=== PATIENT | female | born 1950 | race Caucasian/White ===

== ENCOUNTER → 2016-09-05 | Outpatient (CLI) | payer OTHER ==
--- NOTE | 2016-09-06 12:56 | MM ---
Reason for exam: screening (asymptomatic). Last mammogram was performed 1 year ago. History: Patient is postmenopausal and has history of endometrial cancer at age 29. Family history of breast cancer in aunt at age 60, breast cancer in mother at age 70, and breast cancer in maternal cousin at age 50. Physical Findings: A clinical breast exam by your physician is recommended on an annual basis and results should be correlated with mammographic findings. MG 3D Screening Mammo W/Cad Bilateral CC and MLO view(s) were taken. Prior study comparison: August 31, 2015, bilateral MG 3d screening mammo w/cad. The breast tissue is heterogeneously dense. This may lower the sensitivity of mammography. There is chronic nodularity in the left breast. No significant changes when compared with prior studies. ASSESSMENT: Benign, BI-RAD 2 RECOMMENDATION: Routine screening mammogram of both breasts in 1 year.
== END | disposition home or self-care (01) ==
LOC: RADMAMWWP 09:09
PROVIDERS: ATTEND Internal Medicine
DX: Z12.31 Encounter for screening mammogram for malignant neoplasm of breast (principal)
CPT/HCPCS: 77063; G0202

== ENCOUNTER 2016-10-08 20:35 | Emergency (ER) | payer OTHER ==
[2016-10-08 20:43] VITALS: BP 176/78; PULSE 77; RESP 18; TEMP 97
[2016-10-08] MEDS ORDERED: CEPHALEXIN 500MG STARTER PACK 4 CAP BTL PO STA (20:54)
--- NOTE | 2016-10-08 20:58 | ED ---
Skin/Abscess/FB HPI - General Chief complaint: Skin/Abscess/Foreign Body Stated complaint: Insect Bite Time Seen by Provider: 10/08/16 20:44 Source: patient, RN notes reviewed, old records reviewed Mode of arrival: ambulatory Limitations: no limitations - History of Present Illness Initial comments: This is a 66-year-old female presenting to emergency department what you complain of an area of redness over her left fifth knuckle.Patient reports that she was cleaning out her kitchen sink Underneath it and thinks that she may have been bit by a spider.Patient reports that she has no significant redness or swelling to the area. You're forced to she's just noticed this discoloration. Just wondered that this could possibly be a bruise.Patient denies any decrease range motion and her finger. She denies any itching.She denies any fevers, chills, chest pain comes from some breath, nausea, bombing, abdominal pain. She denies any history of MRSA. Denies any other skin lesions that she's noticed. - Related Data Previous Rx's Medication Instructions Recorded Cephalexin [Keflex] 500 mg PO Q8HR #21 cap 10/08/16 Allergies Allergy/AdvReac Type Severity Reaction Status Date / Time No Known Allergies Allergy Verified 10/08/16 20:40 Review of Systems ROS Statement: Those systems with pertinent positive or pertinent negative responses have been documented in the HPI. ROS Other: All systems not noted in ROS Statement are negative. Past Medical History Additional Past Medical History / Comment(s): allergies History of Any Multi-Drug Resistant Organisms: None Reported Past Surgical History: Cholecystectomy, Hysterectomy Past Psychological History: No Psychological Hx Reported Smoking Status: Former smoker Past Alcohol Use History: None Reported Past Drug Use History: None Reported General Exam - General Exam Comments Initial Comments: Well appearing 66 female. No acute distress. Limitations: no limitations General appearance: alert, in no apparent distress Head exam: Present: atraumatic, normocephalic, normal inspection Eye exam: Present: normal appearance, PERRL, EOMI. Absent: scleral icterus, conjunctival injection, periorbital swelling ENT exam: Present: normal exam, mucous membranes moist Neck exam: Present: normal inspection. Absent: tenderness, meningismus, lymphadenopathy Respiratory exam: Present: normal lung sounds bilaterally. Absent: respiratory distress, wheezes, rales, rhonchi, stridor Cardiovascular Exam: Present: regular rate, normal rhythm, normal heart sounds. Absent: systolic murmur, diastolic murmur, rubs, gallop, clicks GI/Abdominal exam: Present: soft, normal bowel sounds. Absent: distended, tenderness, guarding, rebound, rigid Extremities exam: Present: normal inspection, full ROM, normal capillary refill , other (1cm area of erthematous discoloratoin over the left 5th MCP joint. area is not swollen, and no pus noted. ). Absent: tenderness, pedal edema, joint swelling, calf tenderness Back exam: Present: normal inspection Neurological exam: Present: alert, oriented X3, CN II-XII intact Psychiatric exam: Present: normal affect, normal mood Skin exam: Present: warm, dry, intact, normal color. Absent: rash Course Vital Signs 10/08/16 20:40 Temperature 97.0 F L Pulse Rate 77 Respiratory 18 Rate Blood Pressure 176/78 O2 Sat by Pulse 97 Oximetry Medical Decision Making - Medical Decision Making This is a 66-year-old female presenting to emergency department what you complain of an area of redness over her left fifth knuckle.Patient reports that she was cleaning out her kitchen sink Underneath it and thinks that she may have been bit by a spider.Patient reports that she has no significant redness or swelling to the area. You're forced to she's just noticed this discoloration. She Just wondered that this could possibly be a bruise.Just have some mild erythema over the left knuckle. She reports full range of motion of her finger. Marker was used to draw a line around the area. Discuss so we can start the patient in textFor concern of infectious causes.Patient will be started on keflex.Discussed that she needs to start taking the antibiotic if the area of redness increases.Patient agrees to treatment plan and will comply.Return parameters were discussed. Disposition Clinical Impression: Erythema of finger Disposition: HOME SELF-CARE Condition: Good Additional Instructions: Patient advised to take the antibiotics if the area of redness continues to worsen, or if EC area of pus starting to form. Recommended follow-up with her primary care physician. Return to the emergency department if any alarming signs or symptoms occur. Also put ice over the area. Prescriptions: Cephalexin [Keflex] 500 mg PO Q8HR #21 cap Referrals: Darrius Marquez MD [Primary Care Provider] - 1-2 days Time of Disposition: 20:56
== END 2016-10-08 21:08 | disposition home or self-care (01) ==
LOC: EC 20:35
DX: L53.9 Erythematous condition, unspecified (principal); Z90.49 Acquired absence of other specified parts of digestive tract; Z87.891 Personal history of nicotine dependence
CPT/HCPCS: 99282

== ENCOUNTER → 2017-11-25 | Outpatient (CLI) | payer OTHER ==
--- NOTE | 2017-11-25 08:25 | US ---
EXAMINATION TYPE: US transvaginal DATE OF EXAM: 11/25/2017 COMPARISON: 07/16/2014 CLINICAL HISTORY: 67-year-old female N83.0 Ovarian cyst. History of endometrial cancer at age 29. Fam tennille history (sisters) of ovarian cancer per patient. TECHNIQUE: Transvaginal sonographic images of the pelvis were acquired. FINDINGS: Uterus: Surgically absent Right Ovary: 3.8 x 2.2 x 2.2 cm . There are difficult to visualize due to overlying bowel gas. A dom inant follicle is present measuring 9 mm. Left Ovary: 2.4 x 1.6 x 1.7 cm. There are 2 dominant follicles or functional cysts, one may be parao varian measuring 1.3 cm. The second measures 1.4 cm. Both of these are smaller from the 2.0 cm cyst seen in 2014. No evidence of adnexal abnormality or cul-de-sac fluid. IMPRESSION: 1. Status post hysterectomy. 2. Two dominant follicles or functional cysts within the left ovary measuring up to 1.4 cm, smaller a s compared to 2.0 cm in 2014. One of these may be a paraovarian cyst.
== END | disposition home or self-care (01) ==
LOC: RADUSWWP 07:28
PROVIDERS: ATTEND Obstetrics & Gynecology
DX: N83.202 Unspecified ovarian cyst, left side (principal); Z90.710 Acquired absence of both cervix and uterus
CPT/HCPCS: 76830

== ENCOUNTER → 2017-12-12 | Outpatient (CLI) | payer OTHER, MEDICARE ==
--- NOTE | 2017-12-12 16:32 | BD ---
EXAMINATION TYPE: Axial Bone Density DATE OF EXAM: 12/12/2017 COMPARISON: NONE CLINICAL HISTORY: Height: 5 FT 9 3/4IN Weight: 209 FRAX RISK QUESTIONS: RISK FACTORS HISTORY OF: Family History of Osteoporosis: YES Active: YES Postmenopausal woman: PART HYST AGE 28 Lost more than 2 inches in height since high school: YES MEDICATIONS: NONE Additional History: EXAM MEASUREMENTS: Bone mineral densitometry was performed using the [employer]™ System. Bone mineral density as measured about the Lumbar spine is: ----- L1-L4(G/cm2): 1.138 T Score Values are as follows: ----- L2: -0.8 ----- L3: 0.0 ----- L4: -0.3 ----- L1-L4: -0.3 Bone mineral density has: DECREASED -7.0 % since study of: 2011 Bone mineral density about the R hip (g/cm2): 0.947 Bone mineral density about the L hip (g/cm2): 0.913 T Score values are as follows: -----R Neck: -0.7 -----L Neck: -0.9 -----R Total: -0.6 -----L Total: -0.6 Bone mineral density has: DECREASED -4.0 % since study of: 2011 IMPRESSION: Normal (Values between +1 and -1 indicate normal bone mass). Consider repeating this study in 5 year s or sooner if there is some new clinical indication. NOTE: T-SCORE=SD OF THE YOUNG ADULT MEAN.
--- NOTE | 2017-12-13 12:16 | MM ---
Reason for exam: screening (asymptomatic). Last mammogram was performed 1 year and 3 months ago. History: Patient is postmenopausal and has history of endometrial cancer at age 29. Family history of breast cancer in aunt at age 60, breast cancer in mother at age 70, and breast cancer in maternal cousin at age 50. Physical Findings: A clinical breast exam by your physician is recommended on an annual basis and results should be correlated with mammographic findings. MG 3D Screening Mammo W/Cad Bilateral CC and MLO view(s) were taken. Prior study comparison: September 05, 2016, bilateral MG 3d screening mammo w/cad. August 31, 2015, bilateral MG 3d screening mammo w/cad. The breast tissue is heterogeneously dense. This may lower the sensitivity of mammography. There is chronic nodularity in the left breast. No significant changes when compared with prior studies. ASSESSMENT: Benign, BI-RAD 2 RECOMMENDATION: Routine screening mammogram of both breasts in 1 year.
== END | disposition home or self-care (01) ==
LOC: RADMAMWWP 07:54
PROVIDERS: ATTEND Obstetrics & Gynecology
DX: Z12.31 Encounter for screening mammogram for malignant neoplasm of breast (principal); Z13.820 Encounter for screening for osteoporosis
CPT/HCPCS: 77063; 77067; 77080

== ENCOUNTER → 2018-06-12 | Outpatient (CLI) | payer OTHER, MEDICARE ==
--- NOTE | 2018-06-12 12:54 | XR ---
Cervical spine HISTORY: Neck pain 5 views of the cervical spine and 6 images Overlying artifact noted on the frontal view. There is multilevel facet arthropathy which is extensiv e. Multilevel spondylosis is present. Lateral extension of endplates causes foraminal encroachment at C6-7 and C5-6 bilaterally. There is anterolisthesis grade 1 C4-5, C5-6. Loss of disc height present at C5-6 and C6-7. Prevertebral soft tissues are normal. Cervical vertebral bodies show preserved heig ht. Bone mineralization mildly reduced. IMPRESSION: Degenerative disc disease and facet arthropathy, foraminal encroachment. Cervical MRI may be of benefit.
--- NOTE | 2018-06-12 12:56 | XR ---
Right shoulder HISTORY: Right shoulder pain 3 views of the right shoulder Arthropathy present at the acromioclavicular joint. Alignment, bone mineralization, joint spaces are maintained. Right lung apex as visualized is normal. IMPRESSION: Acromioclavicular joint arthropathy.
== END ==
LOC: RADXRMAIN 09:28
PROVIDERS: ATTEND Internal Medicine
DX: M48.02 Spinal stenosis, cervical region (principal); M50.30 Other cervical disc degeneration, unspecified cervical region; M46.92 Unspecified inflammatory spondylopathy, cervical region; M19.011 Primary osteoarthritis, right shoulder
CPT/HCPCS: 72050

== ENCOUNTER → 2020-08-05 | Outpatient (CLI) | payer MEDICARE, BC ==
--- NOTE | 2020-08-09 10:44 | MM ---
Reason for exam: screening (asymptomatic). Last mammogram was performed 2 years and 8 months ago. History: Patient is postmenopausal and has history of endometrial cancer at age 29. Family history of breast cancer in aunt at age 60, breast cancer in mother at age 70, and breast cancer in maternal cousin at age 50. Physical Findings: A clinical breast exam by your physician is recommended on an annual basis and results should be correlated with mammographic findings. MG 3D Screening Mammo W/Cad Bilateral CC and MLO view(s) were taken. Prior study comparison: December 12, 2017, bilateral MG 3d screening mammo w/cad. September 05, 2016, bilateral MG 3d screening mammo w/cad. There are scattered fibroglandular densities. There is chronic nodularity in the left breast. Benign appearing bilateral calcifications. No significant changes when compared with prior studies. ASSESSMENT: Benign, BI-RAD 2 RECOMMENDATION: Routine screening mammogram of both breasts in 1 year.
== END | disposition home or self-care (01) ==
LOC: RADMAMWWP 10:03
PROVIDERS: ATTEND Internal Medicine
DX: Z12.31 Encounter for screening mammogram for malignant neoplasm of breast (principal); Z80.3 Family history of malignant neoplasm of breast; Z78.0 Asymptomatic menopausal state; Z85.42 Personal history of malignant neoplasm of other parts of uterus
CPT/HCPCS: 77063; 77067

== ENCOUNTER → 2020-08-05 | Outpatient (CLI) | payer MEDICARE, BC ==
--- NOTE | 2020-08-05 10:58 | US ---
EXAMINATION TYPE: US transvaginal DATE OF EXAM: 08/05/2020 COMPARISON: US 11/25/2017 CLINICAL HISTORY: N83.0 prev L ovarian cyst Z80.41 fa hx ovarian ca. Family history of ovarian cancer , 2, para 2, history of hysterectomy and TECHNIQUE: Transvaginal only per ordering physician. Date of LMP: 1979 EXAM MEASUREMENTS: Right Ovary: not seen Left Ovary: 2.6 x 1.4 x 1.9 cm 1. Uterus: surgically absent 2. Endometrium: surgically absent 3. Right Ovary: not seen 4. Left Ovary: 2 cystic areas measuring 1.3 x 1.0 x 1.4cm and 1.2 x 1.1 x 1.5cm, 0.3cm echogenic foc us 5. Bilateral Adnexa: wnl 6. Posterior cul-de-sac: wnl IMPRESSION: 1. Status post hysterectomy. 2. The right ovary is not visualized within the right adnexa. 3. There are 2 cystic structures within the left ovary. One cystic structure measures 1.4 x 1.0 x 1.3 cm. Another cystic structure measuring 1.2 x 1.5 x 1.1 cm with a echogenic [address] The cystic [address] ructures in the left adnexa are again visualized. On prior exam from 11/25/2017 there are 2 cystic str uctures in these regions but the echogenic focus was not visualized. Differential diagnosis for cyst with echogenic focus includes complex cyst, cystadenoma, cystadenocarcinoma, dermoid tumor. Gynecolog ic evaluation and possible pelvic MRI is recommended.
== END | disposition home or self-care (01) ==
LOC: RADUSWWP 10:01
PROVIDERS: ATTEND Obstetrics & Gynecology
DX: N83.202 Unspecified ovarian cyst, left side (principal); Z80.41 Family history of malignant neoplasm of ovary; Z90.710 Acquired absence of both cervix and uterus
CPT/HCPCS: 76830

== ENCOUNTER 2020-08-17 08:27 | Day surgery (SDC) | payer MEDICARE, BC ==
[2020-08-15 15:25] VITALS: BMI 27.6
[2020-08-17 09:09] VITALS: TEMP 98
[2020-08-17] MEDS ORDERED: LACTATED RINGERS 1,000 ML IV ONE (09:23)
[2020-08-17] MEDS ORDERED: LIDOCAINE 1% (10MG/ML) FOR IV START INTRADERMA ONE (09:24)
[2020-08-17] MEDS ORDERED: PROPOFOL 10 MG/ML 20 ML VIAL IV ONE (10:00)
--- NOTE | 2020-08-17 10:19 | P.PCN ---
Date of Procedure: 08/17/20 Procedure(s) Performed: BRIEF HISTORY: Patient is a 70-year-old pleasant white female scheduled for an elective colonoscopy as a part of screening for colorectal neoplasia. She does have family history of colon cancer diagnosed in her mother at age 70 and sister at age 64. PROCEDURE PERFORMED: Colonoscopy. PREOPERATIVE DIAGNOSIS: Screening for Colon cancer/family history of colon cancer. IV sedation per Anesthesia. PROCEDURE: After informed consent was obtained, the patient, was brought into the endoscopy unit. IV sedation was administered by Anesthesia under continuous monitoring. Digital rectal examination was normal. Initially the Olympus CF-160 flexible video colonoscope was then inserted in the rectum, gradually advanced into the cecum without any difficulty. Careful examination was performed as the scope was gradually being withdrawn. Ileocecal valve and the appendiceal orifice were visualized and appeared normal. Prep was excellent. Mucosa of the cecum, ascending colon, transverse colon, descending colon, sigmoid colon, and rectum appeared normal. Scattered sigmoid diverticulosis. Retroflexion was performed in the rectum and no lesions were seen. The patient tolerated the procedure well. IMPRESSION: Normal-appearing colon from rectum to cecum with no evidence of colorectal neoplasia . Scattered sigmoid diverticulosis. RECOMMENDATIONS: Findings of this examination were discussed with the patient as well as her family. She was advised to have a repeat screening colonoscopy every 5 years because of family history of colon cancer.
[2020-08-17 10:33] VITALS: RESP 16
[2020-08-17 10:41] VITALS: BP 125/77; PULSE 64
== END 2020-08-17 11:13 | disposition home or self-care (01) ==
LOC: ORWHC2ENDO 08:27
PROVIDERS: ATTEND Internal Medicine Gastroenterology
DX: Z12.11 Encounter for screening for malignant neoplasm of colon (principal); Z80.0 Family history of malignant neoplasm of digestive organs; K57.30 Diverticulosis of large intestine without perforation or abscess without bleeding; G47.33 Obstructive sleep apnea (adult) (pediatric); Z87.891 Personal history of nicotine dependence; Z79.1 Long term (current) use of non-steroidal anti-inflammatories (NSAID); Z79.899 Other long term (current) drug therapy
CPT/HCPCS: J2704; G0105; 45378

== ENCOUNTER → 2020-11-23 | Outpatient (CLI) | payer MEDICARE, BC ==
--- NOTE | 2020-11-23 09:49 | US ---
EXAMINATION TYPE: US transvaginal DATE OF EXAM: 11/23/2020 COMPARISON: NONE CLINICAL HISTORY: ovarian Cyst N83.0. TECHNIQUE: Transvaginal (TV). Date of LMP: postmenopausal patient with history of cervical cancer, family history of ovarian cance r in sister EXAM MEASUREMENTS: Uterus: Surgically absent Endometrial Stripe: Surgically absent Right Ovary: obscured by overlying bowel gas Left Ovary: as seen below 1. Uterus: Surgically absent 2. Endometrium: Surgically absent 3. Right Ovary: Obscured by overlying bowel gas. 4. Left Ovary: 2 cystic structures measuring 1.1 x 1.0 x 1.0 cm and 1.4 x 0.8 x 1.0cm Previous measurements of 1.3 x 1.0 x 1.4cm and 1.2 x 1.1 x 1.5cm. 5. Bilateral Adnexa: wnl 6. Posterior cul-de-sac: wnl IMPRESSION: 1. Left ovarian cysts, similar to comparison. Continued monitoring and correlation with laboratory is recommended.
== END | disposition home or self-care (01) ==
LOC: RADUSWWP 08:49
PROVIDERS: ATTEND Obstetrics & Gynecology
DX: N83.202 Unspecified ovarian cyst, left side (principal)
CPT/HCPCS: 76830

== ENCOUNTER 2021-12-06 18:44 | Emergency (ER) | payer MEDICARE, BC ==
[2021-12-06 19:44] VITALS: RESP 16
--- NOTE | 2021-12-06 20:05 | XR ---
EXAMINATION TYPE: XR ankle complete LT DATE OF EXAM: 12/06/2021 COMPARISON: NONE HISTORY: Ankle pain TECHNIQUE: 3 views FINDINGS: Ankle mortise is anatomic. I see no fracture nor dislocation. There is plantar and Achilles calcaneal spurring. There is evidence of a small ankle joint effusion. IMPRESSION: Small joint effusion. No fracture.
[2021-12-06] MEDS ORDERED: CYCLOBENZAPRINE 5 MG TAB PO STA (21:32)
--- NOTE | 2021-12-06 21:43 | ED ---
General Adult HPI - General Chief complaint: Extremity Problem,Nontraumatic Stated complaint: Ankle pain Time Seen by Provider: 12/06/21 21:20 Source: patient, RN notes reviewed, old records reviewed Mode of arrival: ambulatory Limitations: no limitations - History of Present Illness Initial comments: Patient is a 71-year-old female with past medical history remarkable for chronic joint pain who presents in the department complaining of left ankle pain. It was sudden in onset. She states she was at a volleyball game and sitting for a long period of time. Was getting up to walk down the bleachers when she suddenly started having left ankle pain. States it was over the anterior aspect of her ankle. Pain with bearing weight. Pain with movement of the ankle. Denies any obvious injury. Presents for further evaluation at this time. Denies any sensory deficits. Denies any leg swelling or other pain. Denies any other injuries. Did not fall. Did not hit her head. No loss of consciousness. She is not on blood thinners. - Related Data Home Medications Medication Instructions Recorded Confirmed Levocetirizine Dihydrochloride 5 mg PO DAILY PRN 08/15/20 08/15/20 [Xyzal] Meloxicam 7.5 mg PO DAILY 08/15/20 08/15/20 Previous Rx's Medication Instructions Recorded Cyclobenzaprine [Flexeril] 5 mg PO BID 5 Days #10 tablet 12/06/21 Allergies Allergy/AdvReac Type Severity Reaction Status Date / Time No Known Allergies Allergy Verified 12/06/21 19:41 Review of Systems ROS Statement: Those systems with pertinent positive or pertinent negative responses have been documented in the HPI. Review of Systems: CONST: Denies fever EYES: Denies blurry vision ENT: Denies nasal congestion C/V: Denies Chest pain RESP: Denies shortness of breath GI: Denies abdominal pain : Denies dysuria SKIN: Denies rash. MSK: Endorses ankle pain NEURO: Denies headache ROS Other: All systems not noted in ROS Statement are negative. Past Medical History Past Medical History: Cancer, Osteoarthritis (OA), Sleep Apnea/CPAP/BIPAP Additional Past Medical History / Comment(s): allergies History of Any Multi-Drug Resistant Organisms: None Reported Past Surgical History: Cholecystectomy, Hysterectomy Past Anesthesia/Blood Transfusion Reactions: No Reported Reaction Past Psychological History: No Psychological Hx Reported Past Alcohol Use History: None Reported - Past Family History Sister(s) Family Medical History: Cancer Additional Family Medical History / Comment(s): 4 sisters had cancer - Colon, Pancreatic, Ovarian. Mother Family Medical History: Cancer Additional Family Medical History / Comment(s): Breast and colon cancer. General Exam - General Exam Comments Initial Comments: General: Appears in mild distress secondary to left ankle pain. HEAD: Normal with no signs of head trauma. EYES: EOMI ENT: Hearing grossly intact RESPIRATORY: No respiratory distress C/V: Peripheral pulses 2+ and intact throughout. ABD: Nondistended EXT: Reduced range of motion of the left ankle secondary to pain over the anterior aspect of the proximal left foot over the ankle joint. No malleoli tenderness. No tibia or fibula tenderness. No obvious deformity. No obvious injury. Neurovascular intact. Difficulty when bearing weight secondary to pain. SKIN: No rashes or lesions observed on exposed skin. NEURO: Alert and oriented 4. Neurovascular intact. Limitations: no limitations Course Vital Signs 12/06/21 19:41 Temperature 98.2 F Pulse Rate 84 Respiratory 16 Rate Blood Pressure 182/80 O2 Sat by Pulse 98 Oximetry Medical Decision Making - Medical Decision Making Based on the patient's presentation and physical exam, I'm concerned for what appears to be atraumatic left ankle injury. X-ray was obtained prior to me evaluating the patient. It revealed a small joint effusion but no acute fracture or obvious injury otherwise. I did evaluate the patient at this time and updated her. I did offer analgesic medications and she accepted Flexeril. Exam is relatively unremarkable. She may have a soft tissue injury to the left ankle or a possible muscle spasm. She'll be provided with an Sotero bandage as well as crutches with follow-up with her PCP. She was in agreement this plan. I will provide the patient with a prescription for Flexeril. I instructed the patient to follow up with their PCP in the next 1-3 days. I explained that the patient should return to the emergency department if they experience any worsening symptoms. Strict return precautions were discussed with the patient. The patient expressed understanding of these instructions. I answered all questions that the patient had. The patient was discharged home in good condition with their prescriptions and follow up information. Disposition Clinical Impression: Muscle spasm, Ankle pain Disposition: HOME SELF-CARE Condition: Good Prescriptions: Cyclobenzaprine [Flexeril] 5 mg PO BID 5 Days #10 tablet Is patient prescribed a controlled substance at d/c from ED?: No Referrals: Taye Bingham MD [Primary Care Provider] - 1-2 days Time of Disposition: 21:25
[2021-12-06 22:44] VITALS: BP 180/79; PULSE 73; TEMP 97.5
== END 2021-12-06 22:44 | disposition home or self-care (01) ==
LOC: EC 18:44
DX: M25.572 Pain in left ankle and joints of left foot (principal); M62.838 Other muscle spasm
CPT/HCPCS: 99283

== ENCOUNTER → 2021-12-15 | Outpatient (CLI) | payer MEDICARE, BC ==
--- NOTE | 2021-12-15 16:37 | BD ---
EXAMINATION TYPE: Axial Bone Density DATE OF EXAM: 12/15/2021 COMPARISON: 12.12.2017 CLINICAL HISTORY: 71 years year old Female. ICD-10 CODE: [id number] OSTEOPOROSIS Height: 69.8 Weight: 200 FRAX RISK QUESTIONS: Glucocorticoids (More than 3mos): IN THE PAST FOR LONG PERIOD OF TIME (Ex: prednisone, prednisolone, methylprednisolone, dexamethasone, and hydrocortisone). RISK FACTORS HISTORY OF: Family History of Osteoporosis: MOM AND SISTER....NO FX Diet low in dairy products/other sources of calcium: YES Postmenopausal woman: YES, AT 50 Hyperparathyroidism: NO Adrenal Insufficiency: NO MEDICATIONS: Prednisone or other steroids: YES, IN THE PAST FOR QUITE A WHILE 2018 AND 2019...POLYMYALGIA Additional Medications: VIT D AND CA TABLET Additional History: POLYMYALGIA, EXAM MEASUREMENTS: Bone mineral densitometry was performed using the [employer] System. Bone mineral density as measured about the Lumbar spine is: ----- L1-L4(G/cm2): 1.183 T Score Values are as follows: ----- L1: -0.3 ----- L2: -1.1 ----- L3: 0.4 ----- L4: 0.8 ----- L1-L4: 0.0 Bone mineral density has: Increased 4.0% since study of: 12.12.2017 Bone mineral density about the R hip (g/cm2): 0.902 Bone mineral density about the L hip (g/cm2): 0.888 T Score values are as follows: -----R Neck: -0.9 -----L Neck: -1.4 -----R Total: -0.8 -----L Total: -1.0 Bone mineral density has: Decreased -4.4% since study of: 12.12.2017 FRAX%s: The graph provided illustrates a 15.5% chance for a major osteoporotic fx and a 2.6% chance f or the hips probability for fx in 10 years time. IMPRESSION: Normal (Values between +1 and -1 indicate normal bone mass). Consider repeating this study in 5 year s or sooner if there is some new clinical indication. NOTE: T-SCORE=SD OF THE YOUNG ADULT MEAN.
--- NOTE | 2021-12-18 09:42 | MM ---
Reason for Exam: Screening (asymptomatic). Last mammogram was performed 1 year(s) and 5 month(s) ago. Patient History: Menarche at age 14. First Full-Term at age 18. Hysterectomy at age 29. Postmenopausal. Endometrial cancer, age 29. Maternal cousin had breast cancer, age 50. Maternal aunt had breast cancer, age 60. Mother had breast cancer, age 70. Risk Values: Christi 5 year model risk: 3.0%. NCI Lifetime model risk: 8.1%. Prior Study Comparison: 09/05/2016 Bilateral Screening Mammogram, [facility]. 12/12/2017 Bilateral Screening Mammogram, [facility]. 08/05/2020 Bilateral Screening Mammogram, [facility]. Tissue Density: There are scattered fibroglandular densities. Findings: Analyzed By CAD. There is no suspicious group of microcalcifications or new suspicious mass in either breast. Stable chronic nodularity within the left breast. No significant change from prior exams. Overall Assessment: Benign, BI-RAD 2 Management: Screening Mammogram of both breasts in 1 year. A clinical breast exam by your physician is recommended on an annual basis and results should be correlated with mammographic findings. Electronically signed and approved by: Trey Veliz D.O.
== END | disposition home or self-care (01) ==
LOC: RADMAMWWP 11:44
PROVIDERS: ATTEND Internal Medicine
DX: Z12.31 Encounter for screening mammogram for malignant neoplasm of breast (principal)
CPT/HCPCS: 77063; 77067; 77080

== ENCOUNTER → 2022-02-23 | Outpatient (CLI) | payer MEDICARE, BC ==
--- NOTE | 2022-02-23 09:35 | XR ---
EXAMINATION TYPE: XR ankle complete LT DATE OF EXAM: 02/23/2022 COMPARISON: NONE HISTORY: Pain FINDINGS: Three views of the ankle demonstrate the ankle mortise to be intact and symmetric. The joint spaces are preserved. The osseous structures are intact. Small calcaneal spurs. IMPRESSION: 1. No definite acute fracture or dislocation, if symptoms persist follow-up study in 7 to 10 days wou ld be suggested.
--- NOTE | 2022-02-23 09:37 | XR ---
EXAMINATION TYPE: XR foot complete LT DATE OF EXAM: 02/23/2022 COMPARISON: NONE HISTORY: Pain TECHNIQUE: Three views are submitted. FINDINGS: The osseous structures are intact. There is no acute fracture or dislocation. Small calcaneal arias mmertoe deformity suggested severe arthropathy first MTP joint with hallux valgus deformity spurs are noted. Sclerosis involving the distal phalanx (compatible small bone island. IMPRESSION: 1. No acute fracture or dislocation. If symptoms persist, follow-up exam in 7 to 10 days could be ob tained. 2. Severe hypertrophic arthropathy first MTP joint. 3. Tiny calcaneal spurs.
== END | disposition home or self-care (01) ==
LOC: RADXRMAIN 08:52
PROVIDERS: ATTEND Internal Medicine
DX: M77.32 Calcaneal spur, left foot (principal); M12.872 Other specific arthropathies, not elsewhere classified, left ankle and foot

== ENCOUNTER → 2022-11-15 | Outpatient (CLI) | payer MEDICARE, BC ==
--- NOTE | 2022-11-16 13:07 | CA ---
Transthoracic Echo Report Name: Roxana Enciso Age: 72 Gender: F : 1950 Exam Date: 11/15/2022 12:50 Exam Location: [facility] Ht (in): 70 Wt (lb): 198 Ordering Physician: Taye Bingham MD Attending/Referring Phys: Taye Bingham MD Health And Wellness Director Adriana Laguerre [facility] Procedure CPT: Indications: I44.0 ATRIOVENTRICULAR BLOCK, FIRST DEGREE Cardiac Hx: Technical Quality: Fair Contrast 1: Total Dose (mL): Contrast 2: Total Dose (mL): MEASUREMENTS (Male / Female) Normal Values 2D ECHO LV Diastolic Diameter PLAX 4.1 cm 4.2 - 5.9 / 3.9 - 5.3 cm LV Systolic Diameter PLAX 2.6 cm IVS Diastolic Thickness 1.1 cm 0.6 - 1.0 / 0.6 - 0.9 cm LVPW Diastolic Thickness 1.1 cm 0.6 - 1.0 / 0.6 - 0.9 cm LV Relative Wall Thickness 0.5 LVOT Diameter 2.1 cm Ascending Aorta Diameter 3.2 cm M-MODE Aortic Root Diameter MM 3.0 cm LA Systolic Diameter MM 3.7 cm LA Ao Ratio MM 1.3 AV Cusp Separation MM 2.0 cm DOPPLER AV Peak Velocity 193.1 cm/s AV Peak Gradient 14.9 mmHg AV Mean Velocity 128.8 cm/s AV Mean Gradient 7.3 mmHg AV Velocity Time Integral 34.8 cm AI Peak Velocity 451.2 cm/s AI Peak Gradient 81.4 mmHg AI Pressure Half Time 447.0 ms LVOT Peak Velocity 160.1 cm/s LVOT Peak Gradient 10.2 mmHg LVOT Velocity Time Integral 21.8 cm LVOT Stroke Volume 75.9 cm??? LVOT Stroke Volume Index 36.5 ml/m??? LVOT Cardiac Index 2680.1 cm???/min???m??? AV Area Cont Eq vti 2.2 cm??? AV Area Cont Eq pk 2.9 cm??? Mitral E Point Velocity 66.1 cm/s Mitral A Point Velocity 108.6 cm/s Mitral E to A Ratio 0.6 MV Deceleration Time 219.7 ms LV E' Lateral Velocity 7.5 cm/s Mitral E to LV E' Lateral Ratio 8.8 LV E' Septal Velocity 7.9 cm/s Mitral E to LV E' Septal Ratio 8.4 TR Peak Velocity 289.1 cm/s TR Peak Gradient 33.4 mmHg Right Atrial Pressure 3.0 mmHg Pulmonary Artery Systolic Pressu 36.4 mmHg Right Ventricular Systolic Press 36.4 mmHg FINDINGS Left Ventricle Mild concentric left ventricular hypertrophy. Left ventricular cavity size normal. Normal left ventricular systolic function with no obvious regional wall motion abnormalities. Left ventricular ejection fraction is estimated at 60- 65%. Right Ventricle Mild right ventricular dilatation. Mild pulmonary hypertension. RVSP estimated at 36 mmHg Right Atrium Mild right atrial dilatation. Left Atrium Mild left atrial dilatation. Mitral Valve Structurally normal mitral valve. Mitral valve thickened. No mitral regurgitation. Aortic Valve Trileaflet aortic valve Aortic valve sclerosis. Mild aortic regurgitation. Tricuspid Valve Structurally normal tricuspid valve. [id number] tricuspid regurgitation. Pulmonic Valve Structurally normal pulmonic valve. Mild pulmonic regurgitation. Pericardium No pericardial effusion. Aorta Normal size aortic root and proximal ascending aorta. CONCLUSIONS Normal LV size and systolic function. LVEF estimated at 60% No obvious regional wall motion abnormality Mild concentric LVH Grade 1 diastolic dysfunction Mild biatrial dilatation Mild RV dilatation with RVSP 36 mmHg Previewed by: Dr Dionicio Cruz (Electronically Signed) Final Date: 16 November 2022 13:06
== END | disposition home or self-care (01) ==
LOC: RADECHMAIN 12:35
PROVIDERS: ATTEND Internal Medicine
DX: I08.2 Rheumatic disorders of both aortic and tricuspid valves (principal); I44.0 Atrioventricular block, first degree
CPT/HCPCS: 93306

== ENCOUNTER → 2023-05-23 | Outpatient (CLI) | payer MEDICARE, BC ==
--- NOTE | 2023-05-26 18:02 | MM ---
Reason for Exam: Screening (asymptomatic). Last mammogram was performed 1 year(s) and 5 month(s) ago. Patient History: Menarche at age 14. First Full-Term at age 18. Hysterectomy at age 29. Postmenopausal. Endometrial cancer, age 29. Maternal cousin had breast cancer, age 50. Maternal aunt had breast cancer, age 60. Mother had breast cancer, age 70. Risk Values: Christi 5 year model risk: 3.0%. NCI Lifetime model risk: 7.3%. Prior Study Comparison: 12/12/2017 Bilateral Screening Mammogram, [facility]. 08/05/2020 Bilateral Screening Mammogram, [facility]. 12/15/2021 Bilateral MG 3D screening mammo w/cad, [facility]. Tissue Density: There are scattered areas of fibroglandular density. Findings: Analyzed By CAD. Chronic nodularity on the left. There is no suspicious group of microcalcifications or new suspicious mass in either breast. Overall Assessment: Benign, BI-RAD 2 Management: Screening Mammogram of both breasts in 1 year. See note below in regards to patient's increased 5 year Christi score. Patient should continue monthly self-breast exams. A clinical breast exam by your physician is recommended on an annual basis. This exam should not preclude additional follow-up of suspicious palpable abnormalities. Note on Christi scores and lifetime risk: 1. A Christi score greater than 3% is considered moderate risk. If this is the case, consider specialist referral to assess eligibility for a risk reducing agent. 2. If overall lifetime risk for the development of breast cancer is 20% or higher, the patient may qualify for future screening with alternating mammogram and breast MRI. Electronically signed and approved by: Cristobal Diaz M.D. Radiologist
== END | disposition home or self-care (01) ==
LOC: RADMAMWWP 08:32
PROVIDERS: ATTEND Internal Medicine
DX: Z12.31 Encounter for screening mammogram for malignant neoplasm of breast (principal); Z78.0 Asymptomatic menopausal state; Z80.3 Family history of malignant neoplasm of breast
CPT/HCPCS: 77063; 77067

== ENCOUNTER → 2024-04-12 | Outpatient (CLI) | payer MEDICARE, BC ==
--- NOTE | 2024-04-13 07:21 | MR ---
EXAMINATION TYPE: MR knee LT wo con DATE OF EXAM: 04/12/2024 COMPARISON: NONE HISTORY: Left knee pain and swelling since January. TECHNIQUE: Multiplanar, multisequence images of the knee is performed without IV contrast. FINDINGS: MEDIAL MENISCUS: Blunted appearance posterior horn with abnormal signal extending to central body and articular surface. LATERAL MENISCUS: Marked blunting with abnormal signal anterior horn and body of the lateral meniscus consistent with full-thickness tear. CRUCIATE LIGAMENTS: The posterior cruciate ligament is intact and unremarkable. Abnormal anterior cr uciate ligament with increased signal and fanning of the fibers. Majority of fibers are torn. COLLATERAL LIGAMENTS: The medial collateral ligament and lateral collateral ligament complex are inta ct. Increased signal and thickening of the proximal portion lateral collateral ligament complex. EXTENSOR MECHANISM: Visualized quadriceps and patellar tendons are intact. EFFUSION: Moderate to large size septated suprapatellar joint effusion. POPLITEAL CYST: No popliteal/olivo cyst. TRICOMPARTMENT SPACES: Moderate to severe tricompartment joint space loss and spurring. CARTILAGE: Chondromalacia patella with cartilaginous loss along the posterior patellar pole. Full-thi ckness loss is seen inferiorly. Tricompartment nuclear cartilaginous loss is seen. BONE MARROW SIGNAL: Areas of heterogeneous increased T2 signal involving the inferior aspect of the p osterior patellar pole. There is largest area of heterogeneous increased T2 signal involving the dist al medial femoral condyle and metaphysis. Articular surface medial tibial femoral compartment shows a reas of diminished T1 and increased T2 signal. OTHER: No additional significant abnormality is appreciated. IMPRESSION: 1. Fairly advanced tricompartment degenerative changes are detailed above. Significant abnormal bone marrow edema distal medial femoral condyle and metaphysis noted. 2. Full-thickness tear posterior horn of medial meniscus extending into the central body. 3. Full-thickness tear anterior horn of lateral meniscus. 4. Essentially complete ACL tear. 5. Chronic proximal LCL sprain. 6. Moderate to large-sized suprapatellar joint effusion. [facility], , 04/13/2024 7:19 AM
== END | disposition home or self-care (01) ==
LOC: RADMRIMAIN 09:06
PROVIDERS: ATTEND Internal Medicine
DX: M23.222 Derangement of posterior horn of medial meniscus due to old tear or injury, left knee (principal); M23.242 Derangement of anterior horn of lateral meniscus due to old tear or injury, left knee; M17.12 Unilateral primary osteoarthritis, left knee; S83.512A Sprain of anterior cruciate ligament of left knee, initial encounter; M25.462 Effusion, left knee

== ENCOUNTER 2024-07-28 13:41 | Inpatient (IN) | payer MEDICARE, BC ==
--- NOTE | 2024-07-28 13:48 | ED ---
Arrhythmia/Palpitations HPI - General Chief Complaint: Arrhythmia/Palpitations Stated Complaint: aFiB Time Seen by Provider: 07/28/24 13:42 Source: patient, EMS, RN notes reviewed, old records reviewed Mode of arrival: EMS Limitations: no limitations - History of Present Illness Initial Comments: This is a 74-year-old female to [facility] elevated heart rate sent in by primary care for new onset atrial fibrillation. Patient complains of shortness of breath and chest pain no history of the same no blood thinners MD Complaint: rapid heart beat, irregular heart beat, atrial fibrillation -: unknown Associated Symptoms: chest pain, shortness of breath - Related Data Home Medications Medication Instructions Recorded Confirmed Levocetirizine Dihydrochloride 5 mg PO DAILY PRN 08/15/20 08/15/20 [Xyzal] Meloxicam 7.5 mg PO DAILY 08/15/20 08/15/20 Previous Rx's Medication Instructions Recorded Cyclobenzaprine [Flexeril] 5 mg PO BID 5 Days #10 tablet 12/06/21 Allergies Allergy/AdvReac Type Severity Reaction Status Date / Time duloxetine [From Cymbalta] AdvReac Nausea & Verified 07/28/24 13:48 Vomiting Review of Systems ROS Statement: Those systems with pertinent positive or pertinent negative responses have been documented in the HPI. ROS Other: All systems not noted in ROS Statement are negative. Past Medical History Past Medical History: Cancer, Osteoarthritis (OA), Sleep Apnea/CPAP/BIPAP Additional Past Medical History / Comment(s): allergies History of Any Multi-Drug Resistant Organisms: None Reported Past Surgical History: Cholecystectomy, Hysterectomy Past Anesthesia/Blood Transfusion Reactions: No Reported Reaction Past Psychological History: No Psychological Hx Reported Past Alcohol Use History: None Reported - Past Family History Sister(s) Family Medical History: Cancer Additional Family Medical History / Comment(s): 4 sisters had cancer - Colon, Pancreatic, Ovarian. Mother Family Medical History: Cancer Additional Family Medical History / Comment(s): Breast and colon cancer. General Exam Limitations: no limitations General appearance: alert, in no apparent distress, anxious Head exam: Present: atraumatic, normocephalic, normal inspection Eye exam: Present: normal appearance, PERRL, EOMI. Absent: scleral icterus, conjunctival injection, periorbital swelling ENT exam: Present: normal exam, mucous membranes moist Neck exam: Present: normal inspection. Absent: tenderness, meningismus, lymphadenopathy Respiratory exam: Present: normal lung sounds bilaterally. Absent: respiratory distress, wheezes, rales, rhonchi, stridor Cardiovascular Exam: Present: tachycardia, irregular rhythm, normal heart sounds. Absent: systolic murmur, diastolic murmur, rubs, gallop, clicks GI/Abdominal exam: Present: soft, normal bowel sounds. Absent: distended, tenderness, guarding, rebound, rigid Extremities exam: Present: normal inspection, full ROM, normal capillary refill. Absent: tenderness, pedal edema, joint swelling, calf tenderness Back exam: Present: normal inspection Neurological exam: Present: alert, oriented X3, CN II-XII intact Psychiatric exam: Present: normal affect, normal mood Skin exam: Present: warm, dry, intact, normal color. Absent: rash Course Vital Signs 07/28/24 07/28/24 07/28/24 13:44 14:47 15:09 Temperature 97.8 F Pulse Rate 142 H 146 H 144 H Respiratory 18 18 18 Rate Blood Pressure 170/102 156/94 153/99 O2 Sat by Pulse 97 98 97 Oximetry - Reevaluation(s) Reevaluation #1: 07/28/24 15:47 Medical records reviewed Reevaluation #2: 07/28/24 15:47 Patient symptoms mildly improved Reevaluation #3: 07/28/24 15:47 Patient informed of results questions answered Reevaluation #4: Was pt. sent in by a medical professional or institution (, PA, [employer], urgent care, hospital, or prison...) When possible be specific @ -no Did you speak to anyone other than the patient for history (EMS, parent, family, police, friend...)? What history was obtained from this source @ -no Did you review nursing and triage notes (agree or disagree)? Why? @ -agree Are old charts reviewed (outside hosp., previous admission, EMS record, old EKG, old radiological studies, urgent care reports/EKG's, prison records)? Report findings @ -yes Differential Diagnosis (chest pain, altered mental status, abdominal pain women, abdominal pain men, vaginal bleeding, weakness, fever, dyspnea, syncope, headache, dizziness, GI bleed, back pain, seizure, CVA, palpatations, mental health, musculoskeletal)? @ -prior EKG interpreted by me (3pts min.). @ -yes X-rays interpreted by me (1pt min.). @ -yes negative for acute disease CT interpreted by me (1pt min.). @ -no U/S interpreted by me (1pt. min.). @ -no What testing was considered but not performed or refused? (CT, X-rays, U/S, labs)? Why? @ -none What meds were considered but not given or refused? Why? @ -none Did you discuss the management of the patient with other professionals (professionals i.e. Dr., PA, [employer], lab, RT, psych nurse, social worker school, vp marketing, teacher, staff command and control officer, vocational case manager)? Give summary @ -no Was smoking cessation discussed for >3mins.? @ -no Was critical care preformed (if so, how long)? @ -no Were there social determinants of health that impacted care today? How? (Homelessness, low income, unemployed, alcoholism, drug addiction, transportation, low edu. Level, literacy, decrease access to med. care, fdc, rehab)? @ -none Was there de-escalation of care discussed even if they declined (Discuss DNR or withdrawal of care, Hospice)? DNR status @ -no What co-morbidities impacted this encounter? (DM, HTN, Smoking, COPD, CAD, Cancer, CVA, ARF, Chemo, Hep., AIDS, mental health diagnosis, sleep apnea, morbid obesity)? @ -none Was patient admitted / discharged? Hospital course, mention meds given and route, prescriptions, significant lab abnormalities, going to OR and other pertinent info. @ - Undiagnosed new problem with uncertain prognosis? @ -no Drug Therapy requiring intensive monitoring for toxicity (Heparin, Nitro, Insulin, Cardizem)? @ -no Were any procedures done? @ -no Diagnosis/symptom? @ - Acute, or Chronic, or Acute on Chronic? @ -Acute Uncomplicated (without systemic symptoms) or Complicated (systemic symptoms)? @ -Complicated Side effects of treatment? @ -no Exacerbation, Progression, or Severe Exacerbation? @ -exacerbation Poses a threat to life or bodily function? How? (Chest pain, [place], [place], pneumonia, PE, COPD, DKA, ARF, appy, cholecystitis, CVA, Diverticulitis, Homicidal, Suicidal, threat to staff... and all critical care pts) @ -yes Reevaluation #5: Differential Palpitations Ventricular arrhythmias, atrial arrhythmias, myocardial infarction, anemia, thyrotoxicosis, electrolyte imbalance, hypokalemia, pulmonary embolism, pulmonary disease, drugs, alcohol, anxiety, stress.... This is not meant to be an all-inclusive list. EKG Findings - EKG Comments: EKG Findings:: EKG is a flutter 146 QRS 79 QTc 381 - EKG Results: EKG: interpreted by MANASAD EKG shows: tachycardia, atrial fibrillation Medical Decision Making - Medical Decision Making 74 female new onset atrial fibrillation A-fib with RVR will admit for rate control, patient's A-fib does appear to be a flutter at a rate of 150 - Lab Data Result diagrams: 07/28/24 14:01 07/28/24 14:01 Lab Results 07/28/24 07/28/24 07/28/24 Range/Units 14:01 14:01 14:01 WBC 7.01 (4.50-10.00) 10*3/uL RBC 4.16 (4.10-5.20) 10*6/uL Hgb 13.8 (12.0-15.0) g/dL Hct 40.6 (37.2-46.3) % MCV 97.6 H (80.0-97.0) fL MCH 33.2 H (27.0-32.0) pg MCHC 34.0 (32.0-37.0) g/dL Plt Count 353 (140-440) 10*3/uL MPV 8.9 L (9.5-12.2) fL Immature Gran % (Auto) 0.3 % Neutrophils % 68.4 % Lymphocytes % 24.4 % Monocytes % 6.4 % Eosinophils % 0.1 % Basophils % 0.4 % Immature Gran # 0.02 (0.00-0.04) 10*3/uL Neutrophils # 4.79 (1.80-7.70) 10*3/uL Lymphocytes # 1.71 (0.90-5.00) 10*3/uL Monocytes # 0.45 (0.20-1.00) 10*3/uL Eosinophils # 0.01 L (0.04-0.35) 10*3/uL Basophils # 0.03 (0.00-0.10) 10*3/uL PT 10.9 (10.0-12.5) sec INR 1.0 (<1.2) APTT 22.2 (22.0-30.0) sec D-Dimer 1.66 H (<0.60) mg/L FEU Sodium 141 (137-145) mmol/L Potassium 4.2 (3.5-5.1) mmol/L Chloride 106 (98-107) mmol/L Carbon Dioxide 24 (22-30) mmol/L Anion Gap 11 mmol/L BUN 15 (7-17) mg/dL Creatinine 0.70 (0.52-1.04) mg/dL Est GFR (CKD-EPI)AfAm >90 (>60 ml/min/1.73 sqM) Est GFR (CKD-EPI)NonAf 86 (>60 ml/min/1.73 sqM) Glucose 107 H (74-99) mg/dL Plasma Lactic Acid Toby (0.7-2.0) mmol/L Calcium 9.7 (8.4-10.2) mg/dL Phosphorus 4.2 (2.5-4.5) mg/dL Magnesium 2.2 (1.6-2.3) mg/dL Total Bilirubin 0.6 (0.2-1.3) mg/dL AST 32 (14-36) U/L ALT 55 H (4-34) U/L Alkaline Phosphatase 89 (38-126) U/L Troponin I (0.000-0.034) ng/mL NT-Pro-B Natriuret Pep 1010 pg/mL Total Protein 7.3 (6.3-8.2) g/dL Albumin 4.7 (3.5-5.0) g/dL TSH 1.110 (0.465-4.680) mIU/L 07/28/24 07/28/24 Range/Units 14:01 14:01 WBC (4.50-10.00) 10*3/uL RBC (4.10-5.20) 10*6/uL Hgb (12.0-15.0) g/dL Hct (37.2-46.3) % MCV (80.0-97.0) fL MCH (27.0-32.0) pg MCHC (32.0-37.0) g/dL Plt Count (140-440) 10*3/uL MPV (9.5-12.2) fL Immature Gran % (Auto) % Neutrophils % % Lymphocytes % % Monocytes % % Eosinophils % % Basophils % % Immature Gran # (0.00-0.04) 10*3/uL Neutrophils # (1.80-7.70) 10*3/uL Lymphocytes # (0.90-5.00) 10*3/uL Monocytes # (0.20-1.00) 10*3/uL Eosinophils # (0.04-0.35) 10*3/uL Basophils # (0.00-0.10) 10*3/uL PT (10.0-12.5) sec INR (<1.2) APTT (22.0-30.0) sec D-Dimer (<0.60) mg/L FEU Sodium (137-145) mmol/L Potassium (3.5-5.1) mmol/L Chloride (98-107) mmol/L Carbon Dioxide (22-30) mmol/L Anion Gap mmol/L BUN (7-17) mg/dL Creatinine (0.52-1.04) mg/dL Est GFR (CKD-EPI)AfAm (>60 ml/min/1.73 sqM) Est GFR (CKD-EPI)NonAf (>60 ml/min/1.73 sqM) Glucose (74-99) mg/dL Plasma Lactic Acid Toby 1.2 (0.7-2.0) mmol/L Calcium (8.4-10.2) mg/dL Phosphorus (2.5-4.5) mg/dL Magnesium (1.6-2.3) mg/dL Total Bilirubin (0.2-1.3) mg/dL AST (14-36) U/L ALT (4-34) U/L Alkaline Phosphatase (38-126) U/L Troponin I <0.012 (0.000-0.034) ng/mL NT-Pro-B Natriuret Pep pg/mL Total Protein (6.3-8.2) g/dL Albumin (3.5-5.0) g/dL TSH (0.465-4.680) mIU/L - Radiology Data Radiology results: report reviewed (CTA chest negative for acute disease), image reviewed Disposition Clinical Impression: Atrial fibrillation, Atrial flutter, Sinus tachycardia, Palpitations, Tachycardia, New onset atrial fibrillation Disposition: ADMITTED IP TO THIS HOSP Condition: Serious Is patient prescribed a controlled substance at d/c from ED?: No Referrals: Milla Diaz MD [Primary Care Provider] - 1-2 days Time of Disposition: 15:35
[2024-07-28] MEDS: SODIUM CHLORIDE 0.9% 1,000 ML IV ONE (13:59)
[2024-07-28 14:24] LABS: ALT 55 U/L (4-34); AST 32 U/L (14-36); African American GFR (CKD) >90 (>60 ml/min/1.73 sqM); Albumin 4.7 g/dL (3.5-5.0); Alkaline Phosphatase 89 U/L (38-126); Anion Gap 11 mmol/L; Blood Urea Nitrogen 15 mg/dL (7-17); Calcium 9.7 mg/dL (8.4-10.2); Carbon Dioxide 24 mmol/L (22-30); Chloride 106 mmol/L (98-107); Glucose 107 mg/dL (74-99); Magnesium 2.2 mg/dL (1.6-2.3); Non-African American GFR(CKD) 86 (>60 ml/min/1.73 sqM); Phosphorus 4.2 mg/dL (2.5-4.5); Potassium 4.2 mmol/L (3.5-5.1); Sodium 141 mmol/L (137-145); Total Bilirubin 0.6 mg/dL (0.2-1.3); Total Protein 7.3 g/dL (6.3-8.2)
[2024-07-28 14:25] LABS: Partial Thromboplastin Time 22.2 sec (22.0-30.0); Prothrombin Time 10.9 sec (10.0-12.5)
[2024-07-28 14:32] LABS: NT-Pro-B-Type Natriuretic Pept 1010 pg/mL
[2024-07-28 14:42] LABS: Basophils # (A) 0.03 10*3/uL (0.00-0.10); Basophils % (A) 0.4 %; Eosinophils # (A) 0.01 10*3/uL (0.04-0.35); Eosinophils % (A) 0.1 %; HCT 40.6 % (37.2-46.3); HGB 13.8 g/dL (12.0-15.0); Lymphocytes # (A) 1.71 10*3/uL (0.90-5.00); Lymphocytes % (A) 24.4 %; MCH 33.2 pg (27.0-32.0); MCV 97.6 fL (80.0-97.0); Mean Platelet Volume 8.9 fL (9.5-12.2); Monocytes # (A) 0.45 10*3/uL (0.20-1.00); Monocytes % (A) 6.4 %; Neutrophils # (A) 4.79 10*3/uL (1.80-7.70); Neutrophils % (A) 68.4 %; Platelet Count 353 10*3/uL (140-440); RBC 4.16 10*6/uL (4.10-5.20); RDW 13.1 % (11.5-14.5); WBC 7.01 10*3/uL (4.50-10.00)
[2024-07-28] MEDS: DILTIAZEM 5 MG/ML 5 ML VIAL IVP STA ×2 (15:12→18:01)
[2024-07-28] MEDS: HEPARIN SODIUM 1,000 UN/ML (10ML VL) IV ONE (15:19)
[2024-07-28] MEDS: HEPARIN SOD,PORK IN 0.45% NACL 25,000 UNIT in 0.45% NACL 1 250ML.BAG IV SCH (15:20)
--- NOTE | 2024-07-28 15:21 | CT ---
EXAMINATION TYPE: CT angio chest DATE OF EXAM: 07/28/2024 COMPARISON: None CLINICAL INDICATION: Female, 74 years old with history of PE; PHH, Knee surgery x 6 weeks ago. Positi ve dimer TECHNIQUE: CTA scan of the thorax is performed with IV Contrast, patient injected with 70 mL of Isovue 370, pulm onary embolism protocol. MIP images are created and reviewed. CT DLP: 347.[address] CTDI: mGy Automated exposure control for dose reduction was used. FINDINGS: LUNGS: The lungs are grossly clear, there is no concerning parenchymal mass or nodule identified. T here is no pleural effusion or pneumothorax seen. The tracheobronchial tree is patent. MEDIASTINUM: There is satisfactory enhancement of the pulmonary artery and its branches, there is no CT evidence for pulmonary embolism. There are no greater than 1 cm hilar or mediastinal lymph nodes. No pericardial effusion is seen. There is mild cardiomegaly. OTHER: No additional significant abnormality is seen. IMPRESSION: 1. NO EVIDENCE OF PULMONARY EMPHYSEMA. 2. MILD CARDIOMEGALY. 3. NO ACUTE CARDIOPULMONARY DISEASE. [facility], , 07/28/2024 3:18 PM
[2024-07-28] MEDS ORDERED: NALOXONE 0.4 MG/ML 1 ML VIAL IV PRN (15:37)
[2024-07-28] MEDS ORDERED: ONDANSETRON 4 MG/2 ML VIAL IVP PRN (15:37)
[2024-07-28] MEDS ORDERED: MORPHINE SULFATE 4 MG/ML SYRINGE IV PRN (15:37)
[2024-07-28] MEDS: METOPROLOL TARTRATE 5 MG/5 ML VIAL IVP STA ×2 (15:51→18:55)
[2024-07-28] MEDS: SODIUM CHLORIDE 0.9% 1,000 ML IV SCH (15:53)
[2024-07-28] MEDS ORDERED: DILTIAZEM 5 MG/ML 5 ML VIAL IVP PRN (17:45)
[2024-07-28] MEDS: DILTIAZEM 125 MG in DEXTROSE 5% IN WATER 100 ML IV SCH (18:05)
[2024-07-28] MEDS ORDERED: LORazepam 0.5 MG TAB PO PRN (21:08)
[2024-07-28] MEDS: HEPARIN SODIUM 1,000 UN/ML (10ML VL) IV PRN (21:48)
[2024-07-28] MEDS: LORazepam 1 MG/0.5 ML VIAL IV PRN (21:50)
--- NOTE | 2024-07-28 22:46 | P.HPIM ---
History of Present Illness H&P Date: 07/28/24 History of present illness; 74-year-old female with PMH of hypertension presents to the ED for evaluation of severely elevated heart rate, she was sent by her primary care physician after new onset of atrial fibrillation. She presented with complaints of shortness of breath and chest pain and has no history of similar complaint. She is not on blood thinners. 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 Most recent echocardiogram was completed on 11/15/2022, and at that time showed EF 60-65% with mild right ventricular dilation, mild pulmonary hypertension, RVSP estimated to be 36, with mild right atrial and left atrial dilation. She denies any chest pain, or shortness of breath. However does sta te that she has been getting minimal amounts of sleep recently, after she underwent a left total knee arthroplasty in early June of this year. Labratory review: -WBC 7.01, hemoglobin 13.8, hematocrit 40.6, platelet 353; sodium 141, potassium 4.2, BUN 15, creatinine 0.70, lactic acid 1.2, calcium 9.7, phosphorus 4.2, magnesium 2.2, total bilirubin 0.6, AST 32, ALT 55, alkaline phosphatase 89; troponin x 2 <0.012, proBNP 1010, TSH 1.110; D-dimer 1.66 Imaging: - CT angio chest done in the ED showed no evidence of pulmonary embolism, mild cardiomegaly and no evidence of acute cardiopulmonary disease -Initial EKG done in the ED independently read and interpreted showed heart rate of 146, with evidence of atrial flutter/tachycardia with RVR - Subsequent EKG done in the ED independently read and interpreted showed heart rate 144, with continued evidence of atrial flutter/tachycardia with RVR Vitals: - On arrival: Blood pressure 170/102, heart rate 142, respiratory rate 18, SpO2 97% on room air - Most recently: Blood pressure 134/84, heart rate 144, respiratory rate 18, SpO2 96% on room air Patient admitted to internal medicine service REVIEW OF SYSTEMS: Pertinent positives and negatives noted in HPI. The rest of the 14-point review of systems is negative. Physical Exam: General: nontoxic, no distress, appears at stated age Derm: warm, dry, intact Head: atraumatic, normocephalic, symmetric Eyes: EOMI, anicteric sclera Mouth: no lip lesion, mucus membranes moist Cardiovascular: Irregularly irregular Lungs: CTA bilateral, no rales, no accessory muscle use Abdominal: soft, non-tender to palpataion, no appreciable organomegaly Extremities: no gross muscle atrophy, no edema, no contractures Neuro: Alert, Oriented, CNII-XII grossly intact, gait normal Psych: well appearing, appropriate affect Assessment and plan 74-year-old female with PMH of hypertension presents to the ED for evaluation of severely elevated heart rate, she was sent by her primary care physician after new onset of atrial fibrillation. #New onset atrial fibrillation #Sustained tachycardia, with possible tachycardia induced cardiomyopathy - [id number] score of 3, strong benefit with anticoagulation - initiated Eliquis 5 mg twice daily - Was on a heparin drip, discontinued now and started on Eliquis 5 mg twice daily - Received total of 10 mg Lopressor IVP and total of 35 mg IVP Cardizem - Initiated on metoprolol 50 mg twice daily - Will receive 250 mcg digoxin now and then again at 6 AM - Continue with Cardizem drip at 10 cc/h - Echocardiogram ordered, currently pending - Cardiac monitoring - Cardiology consulted Chronic conditions: #Hypertension - Resume home medications GI prophylaxis: None DVT prophylaxis: Currently on heparin drip The patient is admitted with an anticipated more than than 2 midnight stay for evaluation of new onset sustained atrial fibrillation/flutter and tachycardia. CODE STATUS: Full code Discussed with: Patient Anticipated discharge place: Home Dictation was produced using [employer] dictation software. please excuse any grammatical, word or spelling errors. Valentin Singh MD PGY-1 IM Past Medical History Past Medical History: Cancer, Osteoarthritis (OA), Sleep Apnea/CPAP/BIPAP Additional Past Medical History / Comment(s): allergies History of Any Multi-Drug Resistant Organisms: None Reported Past Surgical History: Cholecystectomy, Hysterectomy Past Anesthesia/Blood Transfusion Reactions: No Reported Reaction Past Psychological History: No Psychological Hx Reported Past Alcohol Use History: None Reported - Past Family History Sister(s) Family Medical History: Cancer Additional Family Medical History / Comment(s): 4 sisters had cancer - Colon, Pancreatic, Ovarian. Mother Family Medical History: Cancer Additional Family Medical History / Comment(s): Breast and colon cancer. Medications and Allergies Home Medications Medication Instructions Recorded Confirmed Type Levocetirizine Dihydrochloride 5 mg PO HS PRN 08/15/20 07/28/24 History [Xyzal] Acetaminophen Tab [Tylenol Tab] 1,000 mg PO Q6H PRN 07/28/24 07/28/24 History amLODIPine [Norvasc] 5 mg PO HS 07/28/24 07/28/24 History Allergies Allergy/AdvReac Type Severity Reaction Status Date / Time duloxetine [From Cymbalta] AdvReac Nausea & Verified 07/28/24 13:48 Vomiting Physical Exam Vitals: Vital Signs Temp Pulse Resp BP Pulse Ox 07/28/24 19:45 144 H 07/28/24 18:55 75 07/28/24 18:00 97.8 F 83 18 134/84 96 07/28/24 17:26 142 H 18 138/89 96 07/28/24 16:03 126 H 07/28/24 15:59 96 18 131/87 96 07/28/24 15:49 129 H 18 153/95 95 07/28/24 15:09 144 H 18 153/99 97 07/28/24 14:47 146 H 18 156/94 98 07/28/24 13:44 97.8 F 142 H 18 170/102 97 Intake and Output 07/28/24 07/28/24 07/28/24 06:59 14:59 22:59 Intake Total 8.333 Balance 8.333 Intake: Intake, IV Titration 8.333 Amount Diltiazem 125 mg In 8.333 Dextrose 5% in Water 100 ml @ 5 MG/HR 5 mls/hr IV .Q24H [facility] Rx#:[id number] Other: Weight 89.811 kg Results CBC & Chem 7: 07/28/24 14:01 07/28/24 14:01 Labs: Abnormal Lab Results - Last 24 Hours (Table) 07/28/24 07/28/24 07/28/24 Range/Units 14:01 14:01 14:01 MCV 97.6 H (80.0-97.0) fL MCH 33.2 H (27.0-32.0) pg MPV 8.9 L (9.5-12.2) fL Eosinophils # 0.01 L (0.04-0.35) 10*3/uL D-Dimer 1.66 H (<0.60) mg/L FEU Glucose 107 H (74-99) mg/dL ALT 55 H (4-34) U/L
[2024-07-28] MEDS: ACETAMINOPHEN TAB 325 MG TAB PO PRN (23:47)
[2024-07-28] MEDS: DIGOXIN 250 MCG/ML 2 ML AMP IVP ONE (23:47)
[2024-07-28] MEDS: METOPROLOL SUCCINATE (ER) 50 MG TAB.ER.24H PO SCH (23:48)
[2024-07-28] MEDS: APIXABAN 5 MG TAB PO SCH (23:48)
[2024-07-29] MEDS: DIGOXIN 250 MCG/ML 2 ML AMP IVP SCH (04:34)
[2024-07-29 07:20] LABS: Basophils # (A) 0.03 10*3/uL (0.00-0.10); Basophils % (A) 0.4 %; HCT 39.1 % (37.2-46.3); Lymphocytes # (A) 2.01 10*3/uL (0.90-5.00); Lymphocytes % (A) 26.6 %; MCH 32.3 pg (27.0-32.0); MCHC 33.2 g/dL (32.0-37.0); MCV 97.3 fL (80.0-97.0); Mean Platelet Volume 8.7 fL (9.5-12.2); Monocytes # (A) 0.61 10*3/uL (0.20-1.00); Monocytes % (A) 8.1 %; Neutrophils # (A) 4.89 10*3/uL (1.80-7.70); Neutrophils % (A) 64.8 %; Platelet Count 349 10*3/uL (140-440); RBC 4.02 10*6/uL (4.10-5.20); RDW 13.2 % (11.5-14.5); WBC 7.55 10*3/uL (4.50-10.00)
[2024-07-29 07:39] LABS: ALT 53 U/L (4-34); AST 33 U/L (14-36); African American GFR (CKD) >90 (>60 ml/min/1.73 sqM); Albumin 4.3 g/dL (3.5-5.0); Alkaline Phosphatase 88 U/L (38-126); Anion Gap 8 mmol/L; Blood Urea Nitrogen 9 mg/dL (7-17); Calcium 9.8 mg/dL (8.4-10.2); Carbon Dioxide 25 mmol/L (22-30); Chloride 107 mmol/L (98-107); Glucose 101 mg/dL (74-99); Non-African American GFR(CKD) >90 (>60 ml/min/1.73 sqM); Phosphorus 3.9 mg/dL (2.5-4.5); Potassium 4.4 mmol/L (3.5-5.1); Sodium 140 mmol/L (137-145); Total Bilirubin 0.7 mg/dL (0.2-1.3); Total Protein 6.8 g/dL (6.3-8.2)
[2024-07-29] MEDS: DAPAGLIFLOZIN PROPANEDIOL 10 MG TABLET PO SCH (10:38)
[2024-07-29] MEDS: METOPROLOL SUCCINATE (ER) 25 MG TAB.ER.24H PO STA (10:38)
[2024-07-29] MEDS: LOSARTAN 25 MG TAB PO SCH (10:39)
[2024-07-29 11:45] VITALS: BP 144/71; PULSE 77; RESP 20; TEMP 98.1
--- NOTE | 2024-07-29 12:07 | P.CRDCN ---
History of Present Illness Consult date: 07/29/24 Reason for Consult (text): New A-fib with RVR History of present illness: This is a 74-year-old female patient of Dr. Cruz with past medical history of PACs, first-degree AV block, palpitations, family history of premature coronary artery disease. We have been asked to evaluate the patient for new onset of A- fib with RVR. Patient gives history that she had recent knee surgery and her blood pressure was okay at that time but her heart rate was on the high side. She states since 09 July she has been having ongoing problems. She was seen by a new PCP and was sent here because her heart rate was elevated. She states that at home for the last couple weeks her blood pressure has been elevated. She also feels very tired and also has an anxious feeling. She has had ongoing pain from her knee. She also has palpitations. She states due to pain and inability to get comfortable she is not sleeping very much. She denies any tobacco use, no marijuana use, no alcohol use. She drinks 1 cup of coffee in the morning. Patient presented with a blood pressure of 170/102 and heart rate in the 140s. Patient was found to be in atrial fibrillation. She is currently rate controlled and blood pressure is 119/73. Patient is status post digoxin IV push, Cardizem bolus and drip, metoprolol succinate oral and metoprolol tartrate IV, heparin drip. Dr. Cruz discussed with the patient plan for outpatient cardioversion and eventually for ablation. -EKG: Atrial flutter 146 bpm. -Chest x-ray: -CTA chest negative for pulmonary embolism. Mild cardiomegaly. No acute process. -Laboratory studies: WBC 7.5, hemoglobin 13. D-dimer 1.66. Electrolytes and renal function normal. Troponin negative x 3. proBNP 1010. TSH 1.11. -Home cardiac medications: Amlodipine 5 mg at bedtime. -Stress echocardiogram performed in the office on 03/12/2023 was normal treadmill echocardiogram, nonischemic EKG and echocardiographic response to exercise, nor mal clinical and hemodynamical response to exercise. -Event monitor performed 12/11 - 12/18/2022 revealed less than 1% PVC PAC burden. PVC are monomorphic. 1 3 beat NSVT. No atrial fibrillation. No pauses. Review Of Systems: At the time of my exam: CONSTITUTIONAL: Denies fever or chills. HEENT: Denies blurred vision, vision changes, or eye pain. Denies hemoptysis CARDIOVASCULAR: Denies chest pain. Denies orthopnea. Denies PND. Denies palpitations RESPIRATORY: Denies shortness of breath. GASTROINTESTINAL: Denies abdominal pain. Denies nausea or vomiting. HEMATOLOGIC: Denies bleeding disorders. GENITOURINARY: Denies any blood in urine. SKIN: Denies puritis. Denies rash. Physical examination: Gen: This is a 74-year-old female in no acute distress. VS: reviewed HEENT: Head is atraumatic, normocephalic. Pupils equal, round. Sclerae is anicteric. NECK: Supple. No JVD. LUNGS: Clear to auscultation. No wheezes or rhonchi. No intercostal retractions. HEART: Irregular rate and rhythm. No murmur. ABDOMEN: Soft No tenderness. EXTREMITIES: No pedal edema. No calf tenderness. NEUROLOGICAL: Patient is awake, alert and oriented x3. Assessment: New onset typical atrial flutter with RVR, currently rate controlled History of PACs History of first-degree block Palpitations Family history of premature coronary artery disease Plan: Discontinue amlodipine Patient has been started on Eliquis 5 mg twice daily should be continued Start patient on Farxiga 10 mg daily Discontinue digoxin Start patient on losartan 12.5 mg daily Increase metoprolol succinate to 75 mg twice daily Obtain 2-D echocardiogram and Doppler study to assess cardiac structure and function-Dr. Cruz has reviewed preliminarily Obtain A1c and lipid panel Patient is cleared for discharge from cardiology and may follow-up with Dr. Cruz next week. Thank you kindly for this consultation. Nurse practitioner note has been reviewed, I agree with documented findings and plan of care. Patient was seen and examined. Past Medical History Past Medical History: Cancer, Osteoarthritis (OA), Sleep Apnea/CPAP/BIPAP Additional Past Medical History / Comment(s): allergies History of Any Multi-Drug Resistant Organisms: None Reported Past Surgical History: Cholecystectomy, Hysterectomy Past Anesthesia/Blood Transfusion Reactions: No Reported Reaction Past Psychological History: No Psychological Hx Reported Past Alcohol Use History: None Reported - Past Family History Sister(s) Family Medical History: Cancer Additional Family Medical History / Comment(s): 4 sisters had cancer - Colon, Pancreatic, Ovarian. Mother Family Medical History: Cancer Additional Family Medical History / Comment(s): Breast and colon cancer. Medications and Allergies Home Medications Medication Instructions Recorded Confirmed Type Levocetirizine Dihydrochloride 5 mg PO HS PRN 08/15/20 07/28/24 History [Xyzal] Acetaminophen Tab [Tylenol Tab] 1,000 mg PO Q6H PRN 07/28/24 07/28/24 History amLODIPine [Norvasc] 5 mg PO HS 07/28/24 07/28/24 History Allergies Allergy/AdvReac Type Severity Reaction Status Date / Time duloxetine [From Cymbalta] AdvReac Nausea & Verified 07/28/24 13:48 Vomiting Physical Exam Vitals: Vital Signs Temp Pulse Pulse Resp BP BP Pulse Ox 07/29/24 07:58 98.3 F 75 18 119/73 97 07/29/24 04:00 77 16 137/81 98 07/29/24 02:00 141 H 18 07/28/24 22:18 97.9 F 16 143/78 07/28/24 21:52 114 H 18 161/101 94 L 07/28/24 19:45 144 H 07/28/24 18:55 75 07/28/24 18:00 97.8 F 83 18 134/84 96 07/28/24 17:26 142 H 18 138/89 96 07/28/24 16:03 126 H 07/28/24 15:59 96 18 131/87 96 07/28/24 15:49 129 H 18 153/95 95 07/28/24 15:09 144 H 18 153/99 97 07/28/24 14:47 146 H 18 156/94 98 07/28/24 13:44 97.8 F 142 H 18 170/102 97 Intake and Output 07/28/24 07/29/24 07/29/24 22:59 06:59 14:59 Intake Total 73.166 116.667 Balance 73.166 116.667 Intake: Intake, IV Titration 73.166 116.667 Amount Diltiazem 125 mg In 8.333 116.667 Dextrose 5% in Water 100 ml @ 5 MG/HR 5 mls/hr IV .Q24H [facility] Rx#:[id number] Heparin Sod,Pork in 0.45% 64.833 NaCl 25,000 unit In 0.45 % NaCl 1 250ml.bag @ 11. 134 UNITS/KG/HR 10 mls/hr IV .Q24H [facility] Rx#: [id number] Other: Weight 89.811 kg 89.6 kg Results 07/29/24 06:54 07/29/24 06:54 Cardiac Enzymes 07/28/24 07/28/24 07/28/24 Range/Units 14:01 14:01 17:02 AST 32 (14-36) U/L Troponin I <0.012 <0.012 (0.000-0.034) ng/mL 07/28/24 07/29/24 Range/Units 21:13 06:54 AST 33 (14-36) U/L Troponin I <0.012 (0.000-0.034) ng/mL Coagulation 07/28/24 07/28/24 Range/Units 14:01 21:13 PT 10.9 (10.0-12.5) sec APTT 22.2 35.7 H (22.0-30.0) sec CBC 07/28/24 07/29/24 Range/Units 14:01 06:54 WBC 7.01 7.55 (4.50-10.00) 10*3/uL RBC 4.16 4.02 L (4.10-5.20) 10*6/uL Hgb 13.8 13.0 (12.0-15.0) g/dL Hct 40.6 39.1 (37.2-46.3) % Plt Count 353 349 (140-440) 10*3/uL Comprehensive Metabolic Panel 07/28/24 07/29/24 Range/Units 14:01 06:54 Sodium 141 140 (137-145) mmol/L Potassium 4.2 4.4 (3.5-5.1) mmol/L Chloride 106 107 (98-107) mmol/L Carbon Dioxide 24 25 (22-30) mmol/L BUN 15 9 (7-17) mg/dL Creatinine 0.70 0.58 (0.52-1.04) mg/dL Glucose 107 H 101 H (74-99) mg/dL Calcium 9.7 9.8 (8.4-10.2) mg/dL AST 32 33 (14-36) U/L ALT 55 H 53 H (4-34) U/L Alkaline Phosphatase 89 88 (38-126) U/L Total Protein 7.3 6.8 (6.3-8.2) g/dL Albumin 4.7 4.3 (3.5-5.0) g/dL Current Medications Generic Name Dose Route Start Last Admin Trade Name Freq PRN Reason Stop Dose Admin Acetaminophen 650 mg 07/28/24 22:42 07/29/24 08:18 Acetaminophen Tab 325 Mg Tab PO 650 mg Q6HR PRN Administration Fever and/ or Pain Apixaban 5 mg 07/28/24 23:45 07/29/24 08:18 Apixaban 5 Mg Tab PO 5 mg BID KATHY Administration Protocol Digoxin 250 mcg 07/29/24 06:00 07/29/24 08:19 Digoxin 250 Mcg/Ml 2 Ml Amp IVP 250 mcg DAILY KATHY Administration Diltiazem HCl 20 mg 07/28/24 17:45 Diltiazem 5 Mg/Ml 5 Ml Vial IVP 07/29/24 23:00 ONCE PRN See Comments Sodium Chloride 1,000 mls @ 75 mls/hr 07/28/24 15:45 07/29/24 04:33 Saline 0.9% IV Not Given .[id number] KATHY Diltiazem HCl 125 mg/ Dextrose 125 mls @ 5 mls/hr 07/28/24 17:45 07/29/24 08:21 /Water IV 10 mg/hr .Q24H [facility] 10 mls/hr Administration Protocol 5 MG/HR Lorazepam 0.5 mg 07/28/24 21:36 07/28/24 21:50 Lorazepam 1 Mg/0.5 Ml Vial IV 0.5 mg Q6HR PRN Administration Anxiety Metoprolol Succinate 50 mg 07/28/24 23:45 07/29/24 08:18 Metoprolol Succinate (Er) 50 Mg Tab.Er.24h PO 50 mg BID KATHY Administration Morphine Sulfate 4 mg 07/28/24 15:37 Morphine Sulfate 4 Mg/Ml Syringe IV Q4HR PRN Severe Pain (Scale 7 to 10) Naloxone HCl 0.2 mg 07/28/24 15:37 Naloxone 0.4 Mg/Ml 1 Ml Vial IV Q2M PRN Opioid Reversal Ondansetron HCl 4 mg 07/28/24 15:37 Ondansetron 4 Mg/2 Ml Vial IVP Q8HR PRN Nausea And Vomiting Intake and Output 07/28/24 07/29/24 07/29/24 22:59 06:59 14:59 Intake Total 73.166 116.667 Balance 73.166 116.667 Intake: Intake, IV Titration 73.166 116.667 Amount Diltiazem 125 mg In 8.333 116.667 Dextrose 5% in Water 100 ml @ 5 MG/HR 5 mls/hr IV .Q24H [facility] Rx#:[id number] Heparin Sod,Pork in 0.45% 64.833 NaCl 25,000 unit In 0.45 % NaCl 1 250ml.bag @ 11. 134 UNITS/KG/HR 10 mls/hr IV .Q24H [facility] Rx#: [id number] Other: Weight 89.811 kg 89.6 kg 07/29/24 06:54 07/29/24 06:54
--- NOTE | 2024-07-29 12:32 | CA ---
Transthoracic Echo Report Name: Roxana Enciso Age: 74 Gender: F : 1950 Exam Date: 07/29/2024 09:08 Exam Location: [facility] Ht (in): 70 Wt (lb): 198 Ordering Physician: Héctor Singh MD Attending/Referring Phys: Leasing Representative Yeyo Marina RDCS Procedure CPT: Indications: new onset a fib Cardiac Hx: Technical Quality: Good Contrast 1: Total Dose (mL): Contrast 2: Total Dose (mL): MEASUREMENTS (Male / Female) Normal Values 2D ECHO LV Diastolic Diameter PLAX 4.3 cm 4.2 - 5.9 / 3.9 - 5.3 cm LV Systolic Diameter PLAX 3.1 cm IVS Diastolic Thickness 1.2 cm 0.6 - 1.0 / 0.6 - 0.9 cm LVPW Diastolic Thickness 1.1 cm 0.6 - 1.0 / 0.6 - 0.9 cm LV Relative Wall Thickness 0.5 RV Internal Dim ED PLAX 3.5 cm LVOT Diameter 2.1 cm Aortic Root Diameter 3.0 cm LA Systolic Diameter LX 3.8 cm 3.0 - 4.0 / 2.7 - 3.8 cm LV Diastolic Volume MOD BP 99.8 cm??? 67 - 155 / 56 - 104 cm??? LV Systolic Volume MOD BP 49.2 cm??? 22 - 58 / 19 - 49 cm??? LV Ejection Fraction MOD BP 50.7 % >= 55 % LV Cardiac Index MOD BP 1881.6 cm???/min???m??? LV Diastolic Volume MOD 4C 98.9 cm??? LV Systolic Volume MOD 4C 44.3 cm??? LV Ejection Fraction MOD 4C 55.2 % LV Cardiac Index MOD 4C 2029.4 cm???/min???m??? LV Diastolic Length 4C 7.7 cm LV Systolic Length 4C 6.5 cm LV Diastolic Volume MOD 2C 97.2 cm??? LV Systolic Volume MOD 2C 52.1 cm??? LV Ejection Fraction MOD 2C 46.4 % LV Cardiac Index MOD 2C 1676.4 cm???/min???m??? LV Diastolic Length 2C 8.0 cm LV Systolic Length 2C 6.8 cm LA Volume 70.8 cm??? 18 - 58 / 22 - 52 cm??? LA Volume Index 33.3 cm???/m??? 16 - 28 cm???/m??? DOPPLER AI Peak Velocity 404.8 cm/s AI Peak Gradient 65.6 mmHg AI Pressure Half Time 457.2 ms MV Peak Velocity 153.3 cm/s MV Peak Gradient 9.4 mmHg MV Mean Velocity 80.7 cm/s MV Mean Gradient 3.4 mmHg MV Velocity Time Integral 27.9 cm MV Area PHT 4.8 cm??? Mitral E Point Velocity 121.6 cm/s Mitral A Point Velocity 68.1 cm/s Mitral E to A Ratio 1.8 MV Deceleration Time 157.0 ms TR Peak Velocity 240.7 cm/s TR Peak Gradient 23.2 mmHg Right Atrial Pressure 5.0 mmHg Pulmonary Artery Systolic Pressu 28.2 mmHg Right Ventricular Systolic Press 28.2 mmHg FINDINGS Left Ventricle Left ventricular ejection fraction is estimated at 55-60 %. Mild concentric left ventricular hypertrophy. No obvious regional wall motion abnormalities. Right Ventricle Mild right ventricular dilatation. Right ventricular systolic pressure within normal limits. Right Atrium Mild right atrial dilatation. Left Atrium Mildly increased left atrial volume. Mitral Valve Mild mitral calcification. No mitral stenosis. Trace mitral regurgitation. Aortic Valve Trileaflet aortic valve. No aortic stenosis. Moderate aortic regurgitation. Tricuspid Valve Structurally normal tricuspid valve. No tricuspid stenosis. Moderate tricuspid regurgitation. Pulmonic Valve Structurally normal pulmonic valve. No pulmonic stenosis. Trace pulmonic regurgitation. Pericardium No pericardial effusion. Aorta Normal size aortic root and proximal ascending aorta. CONCLUSIONS Reason for echo: Atrial fibrillation LVH with preserved systolic function Mildly enlarged right ventricle Biatrial enlargement Moderate tricuspid regurgitation and moderate aortic regurgitation Previewed by: Dr. Ovidio Humphrey MD (Electronically Signed) Final Date: 29 Jul 2024 12:31
--- NOTE | 2024-07-29 13:06 | P.DS ---
Providers Date of admission: 07/28/24 15:41 Expected date of discharge: 07/29/24 Attending physician: Devante Peters Consults: 07/28/24 15:37 Consult Physician Routine Consulting Provider: Lexi Gutierres Consult Reason/Comments: [email or web address] Do you want consulting provider notified?: Yes Primary care physician: Milla Diaz MD Hospital Course: Discharge Diagnosis: New onset atrial fibrillation with RVR Hypertension Moderate tricuspid regurgitation Moderate aortic regurgitation Hospital Course: 74-year-old female with history of first-degree AV block, PACs presenting with new onset A-fib with RVR. Laboratory workup unremarkable. D-dimer was 1.66. CTA chest did not show any evidence of PE. EKG showed A-fib with RVR. Echocardiogram showed preserved LV function with LVH, moderate tricuspid regurgitation, moderate aortic regurgitation. Metoprolol started, amlodipine discontinued, by cardiology. Patient currently asymptomatic, rate controlled. Being discharged home with close follow-up with PCP and cardiology. Patient seen and examined at bedside. Vital signs reviewed and stable. General: Nontoxic, no distress, appears at stated age Derm: Warm, dry Head: Atraumatic, normocephalic, symmetric Eyes: EOMI, no lid lag, anicteric sclera Mouth: No lip lesion, mucus membranes moist Cardiovascular: S1S2 irregular, no murmur Lungs: CTA bilateral, no rhonchi, no rales, no accessory muscle use Abdominal: Soft, nontender to palpation, no guarding, no appreciable organomegaly Ext: No gross muscle atrophy, no edema, no contractures Neuro: CN II-XI grossly intact, no focal neuro deficits Psych: Alert, oriented, appropriate affect A total of 33 minutes of time were spent preparing this complex discharge summary. Patient was discharged on 07/29/2024 at 1302. Patient Condition at Discharge: Stable Plan - Discharge Summary Discharge Rx Participant: No New Discharge Prescriptions: New Dapagliflozin Propanediol [Farxiga] 10 mg PO DAILY #90 tab Metoprolol Succinate (ER) [Toprol XL] 75 mg PO BID #90 tab Losartan [Cozaar] 12.5 mg PO DAILY #90 tab Apixaban [Eliquis] 5 mg PO BID #90 tab Continue Levocetirizine Dihydrochloride [Xyzal] 5 mg PO HS PRN PRN Reason: Allergic Reaction Acetaminophen Tab [Tylenol] 1,000 mg PO Q6H PRN PRN Reason: Pain Discontinued amLODIPine [Norvasc] 5 mg PO HS Discharge Medication List Levocetirizine Dihydrochloride [Xyzal] 5 mg PO HS PRN 08/15/20 [History] Acetaminophen Tab [Tylenol] 1,000 mg PO Q6H PRN 07/28/24 [History] Apixaban [Eliquis] 5 mg PO BID #90 tab 07/29/24 [Rx] Dapagliflozin Propanediol [Farxiga] 10 mg PO DAILY #90 tab 07/29/24 [Rx] Losartan [Cozaar] 12.5 mg PO DAILY #90 tab 07/29/24 [Rx] Metoprolol Succinate (ER) [Toprol XL] 75 mg PO BID #90 tab 07/29/24 [Rx] Follow up Appointment(s)/Referral(s): Dionicio Cruz MD [Medical Doctor] - 1 Week Milla Diaz MD [Primary Care Provider] - 1-2 days Patient Instructions/Handouts: A-fib (Atrial Fibrillation) (DC) Activity/Diet/Wound Care/Special Instructions: Please see PCP and cardiology. Discharge Disposition: HOME SELF-CARE
[2024-07-29 16:00] LABS: Chol/HDL Ratio 2.86 Ratio; LDL Cholesterol,Calculated 84.9 mg/dL (0.0-131.0)
[2024-07-29] MEDS ORDERED: METOPROLOL SUCCINATE (ER) 25 MG TAB.ER.24H PO SCH (21:00)
== END 2024-07-29 15:38 | disposition home or self-care (01) | DRG 310 ==
LOC: EC 13:41 → 3SCARD 15:41
PROVIDERS: ADMIT Student in an Organized Health Care Education/Training Program; ATTEND Student in an Organized Health Care Education/Training Program
DX: I48.91 Unspecified atrial fibrillation (principal); I47.20 Ventricular tachycardia, unspecified; I27.20 Pulmonary hypertension, unspecified; I08.3 Combined rheumatic disorders of mitral, aortic and tricuspid valves; I10 Essential (primary) hypertension; I48.3 Typical atrial flutter; Z79.01 Long term (current) use of anticoagulants; I49.3 Ventricular premature depolarization; Z79.1 Long term (current) use of non-steroidal anti-inflammatories (NSAID); Z79.899 Other long term (current) drug therapy; Z82.49 Family history of ischemic heart disease and other diseases of the circulatory system; Z90.710 Acquired absence of both cervix and uterus; Z96.652 Presence of left artificial knee joint; Z88.8 Allergy status to other drugs, medicaments and biological substances; Z90.49 Acquired absence of other specified parts of digestive tract
CPT/HCPCS: 36415; 71275; 80053; 80061; 83036; 83605; 83735; 83880; 84100; 84443; 84484; 85025; 85379; 85610; 85730; 93005; 93306; 96361; 96365; 96366; 96368; 96375; 99285

== ENCOUNTER 2024-08-27 06:10 | Day surgery (SDC) | payer MEDICARE, BC ==
[~2024-08-27 06:10] MED LIST: SODIUM CHLORIDE 0.9% 1,000 ML IV SCH
[2024-08-27] MEDS: IV FLUID CONTINUATION 500 ML IV ONE (06:43)
[2024-08-27] MEDS ORDERED: LACTATED RINGERS 1,000 ML IV SCH (06:51)
[2024-08-27] MEDS ORDERED: LIDOCAINE 1% (10MG/ML) FOR IV START INTRADERMA PRN (06:51)
[2024-08-27 06:52] VITALS: TEMP 97.6
[2024-08-27] MEDS ORDERED: PROPOFOL 10 MG/ML 20 ML VIAL IV ONE (07:22)
[2024-08-27] MEDS: BENZOCAINE SPRAY 1 EACH MUCOUS MEM ONE (07:25)
--- NOTE | 2024-08-27 08:23 | P.TEE ---
Date of Procedure: 08/27/24 Description of Procedure(s): Procedure performed: 1. Transesophageal Echocardiogram. 2. Synchronized Cardioversion. 3. Bubble study Indications: Persistent symptomatic atrial flutter Consent: I have discussed the risks, benefits and alternative therapies for the above-mentioned procedure. The patient has indicated understanding and acceptance of the risks of the procedure. Signed consent was obtained and was placed in the paper chart. Moderate conscious sedation: Moderate conscious sedation was administered by anesthesia, see separate report. Procedural Steps: Timeout was performed in usual fashion. Patient's heart rate, blood pressure, oxygen saturation and ECG were monitored. After achieving appropriate moderate conscious sedation, KATRIN KATRIN probe was advanced without difficulty and without any immediate complications to the esophagus. KATRIN study was performed with color flow doppler, pulsed wave doppler and continuous wave doppler. Agitated saline bubbles were injected to assess for any intra-atrial shunt. The probe was then removed. SYNCHRONIZED CARDIOVERSION After making sure that there is no evidence of intracardiac thrombus, pacer pads were placed and secured on patients chest and back. Synchronized cardioversion was perfromed using 200 J. After first attempt, daisha ent had normal sinus rhythm however had frequent PACs and short atrial runs, therefore 2nd attempt of synchronized cardioversion was performed with 200 J. It was successful with sustained normal sinus rhythm with reduction in PACs and runs. Sinus rhythm was confirmed with a 12 lead EKG. Patient tolerated the procedure well. Patient was transferred to the post procedure area in stable and satisfactory condition. Complications: none Blood loss: none FINDINGS Left Atrium: Moderate left atrial dilatation. No evidence of mass or thrombus. Left Atrial Appendage: No evidence of thrombus or mass seen in MIGUEL. Dilated left atrial appendage. Inter atrial septum: There is evidence of PFO with [id number] intracardiac shunting on bubble study. Left Ventricle: Normal global LV size and systolic function Right Atrium: Mild overall RA size Right Ventricle: Normal global RV size and systolic function Aortic Valve: Trileaflet, mild calcific sclerosis, mild central aortic regurgitation. Mitral Valve: Mild prolapse noticed in anterior mitral leaflet with mild thickening of leaflet tips. Mild mitral regurgitation. Pulmonic Valve: Not well visualized. Tricuspid Valve: Structurally normal, moderate tricuspid regurgitation. RVSP 28 mmHg Ascending aorta, Aortic root and Aortic arch: Mild intimal thickening. No evidence of large atheroma. Aortic root 2.9 cm Descending aorta: Mild intimal thickening. No evidence of large atheroma or bulky calcification Trace pericardial effusion with fluid collection in transverse sinus CONCLUSION: No evidence of thrombus in MIGUEL or LA Moderate LA dilatation, mild RA dilatation Mild prolapse of intra mitral leaflet with thickened leaflet tips. Mild mitral regurgitation Mild central aortic regurgitation Moderate tricuspid regurgitation Evidence of PFO with [id number] intracardiac shunting on bubble study Trace pericardial effusion Successful synchronized cardioversion 2 attempts 200 J Plan Continue other medications without changes. Reduce metoprolol to 50 mg twice daily Follow-up outpatient. Outpatient ablation evaluation Dionicio Cruz MD, RPVI, FACC Thank you for allowing [facility] to participate in this patient's care. Feel free to reach out in case of any followup questions.
[2024-08-27 08:36] VITALS: RESP 17
[2024-08-27 09:10] VITALS: BP 123/75; PULSE 82
== END 2024-08-27 09:20 | disposition home or self-care (01) ==
LOC: OR 06:10
PROVIDERS: ATTEND Student in an Organized Health Care Education/Training Program
DX: I48.3 Typical atrial flutter (principal); I08.3 Combined rheumatic disorders of mitral, aortic and tricuspid valves; Z79.899 Other long term (current) drug therapy
CPT/HCPCS: 93312; 93320; 93325; 92960; J2704